=== PATIENT | female | born 1955 | race Hispanic/Latino ===

== ENCOUNTER → 2016-06-21 | Outpatient (CLI) | payer OTHER ==
--- NOTE | 2016-06-21 09:07 | Diagnostic Imaging Report ---
PROCEDURE: US abdomen complete. TECHNIQUE: Multiple real-time grayscale images were obtained over the abdomen in various projections. INDICATION: Chronic nausea. COMPARISON: None. DISCUSSION: Sonographic evaluation of the abdomen was performed. The liver appears normal in echotexture and size. No hepatic mass identified. The gallbladder appears normal without evidence of cholelithiasis, wall thickening, or pericholecystic fluid. No evidence of intra or extrahepatic biliary duct dilatation. The common bile duct is normal measuring 0.4 cm. The pancreas appears normal as visualized. The spleen appears normal in echotexture and size measuring 10.5 cm. The visualized aorta and IVC appear within normal limits. The bilateral kidneys appear normal in echotexture and size without evidence of hydronephrosis or renal mass. The right kidney measures 10.7 cm. The left kidney measures 9.8 cm. There is no ascites or abnormal bowel loops identified. No sonographic Dhillon sign was reported. IMPRESSION: 1. Unremarkable abdominal ultrasound. Dictated by: Dictated on workstation # [id number]
== END ==
LOC: RAD 07:53
PROVIDERS: ATTEND Physician Assistant Surgical
DX: R11.0 Nausea (principal)
CPT/HCPCS: 76700

== ENCOUNTER → 2016-07-02 | Outpatient (CLI) | payer OTHER ==
--- NOTE | 2016-07-02 10:14 | Diagnostic Imaging Report ---
INDICATION: Right upper quadrant pain, chronic nausea. COMPARISON: Ultrasound of 06/21/2016. TECHNIQUE: Scintigraphic images were obtained following the intravenous administration of 8.4 mCi of technetium 99m labeled Choletec. The ejection fraction was calculated following the administration of a fatty meal. A region of interest was drawn around the gallbladder and a time/activity curve was generated. DISCUSSION: The hepatic uptake and excretion are normal. There is normal appearance of activity within the gallbladder at 13 minutes. No retention of activity is seen within the common duct. Following the administration of a fatty meal, the gallbladder ejection fraction was calculated at 69%, normal. IMPRESSION: 1. Normal HIDA scan. 2. Normal gallbladder ejection fraction. 3. The patient did report pain in the right upper quadrant following consumption of Ensure. Dictated by: Dictated on workstation # [id number]
== END ==
LOC: RAD 07:51
PROVIDERS: ATTEND Physician Assistant Surgical
DX: R11.0 Nausea (principal); R10.11 Right upper quadrant pain
CPT/HCPCS: 78227; A9537; J2805

== ENCOUNTER → 2016-08-27 | Outpatient (CLI) | payer OTHER | LOC: RAD 07:56 | PROVIDERS: ATTEND Family Medicine | DX: Z12.31 Encounter for screening mammogram for malignant neoplasm of breast (principal) ==

== ENCOUNTER → 2016-09-18 | Outpatient (REF) | payer OTHER ==
[2016-09-18 12:00] LABS: BILIRUBIN,URINE Negative (Negative); CLARITY,URINE Clear; COLOR,URINE Yellow; GLUCOSE, URINE (UA) Negative (Negative); LEUKOCYTE ESTERASE ,URINE Negative (Negative); UROBILINOGEN,URINE 0.2 mg/dL (0.2-1.0)
== END ==
LOC: LAB 11:37
PROVIDERS: ATTEND Family Medicine
DX: R30.0 Dysuria (principal)
CPT/HCPCS: 81003

== ENCOUNTER → 2016-09-26 | Outpatient (CLI) | payer OTHER ==
[2016-09-26 07:59] LABS: BASOPHILS % (AUTO) 0 % (0-2); EOSINOPHILS # (AUTO) 0.2 10^3uL; EOSINOPHILS % (AUTO) 3 % (0-4); LYMPHOCYTES # (AUTO) 1.9 X10^3; MEAN CORPUSCULAR HEMOGLOBIN 28.9 PG (26.0-34.0); MEAN CORPUSCULAR HGB CONC 32.8 g/dL (31.0-37.0); MEAN CORPUSCULAR VOLUME 88 FL (80-100); MEAN PLATELET VOLUME 9.6 FL (6.0-9.5); MONOCYTES # (AUTO) 0.5 X10^3; MONOCYTES % (AUTO) 8 % (3-11); NEUTROPHILS # (AUTO) 3.5 X10^3; NEUTROPHILS % (AUTO) 58 % (51-67); PLATELET COUNT 269 10^3uL (150-450); WHITE BLOOD COUNT 6.08 10^3uL (4.0-11.0)
[2016-09-26 08:14] LABS: ANION GAP 16.1 MEQ/L (3-15); CALCULATED IONIZED CALCIUM 4.1 mg/dL (3.8-4.6)
--- NOTE | 2016-09-26 11:43 | Diagnostic Imaging Report ---
PROCEDURE: MRI lumbar spine. TECHNIQUE: Multiplanar, multisequence MRI of the lumbar spine was performed without contrast. INDICATION: Increasing lower back pain over the last 14 years. FINDINGS: The bone marrow does not show any significant abnormality. There is no evidence for discitis/osteomyelitis or neoplasm. The conus is normal. No intradural lesion is identified. L1-L2: Mild diffuse disc bulge. No significant abnormality. L2-L3 level: Dehydration change with mild loss of height. Mild diffuse disc bulge with mild central stenosis. No significant foraminal stenosis or nerve root encroachment. L3-L4 level: Disc dehydration change. Normal disc height. Minimal disc bulging. No significant abnormality. L4-L5 level: Mild diffusely bulging intervertebral disc with small focal central bulge. Mildly prominent ligamenta flava. Mild decrease in cross-sectional CSF surface area of thecal sac. No compression of the L4 nerve roots in the superior foramina. Mildly prominent ligamenta flava. L5-S1 level: Normal disc height and hydration state. Mild facet arthropathy is seen. The intervertebral disc shows no protrusion or significant bulge. The visualized portions of the abdominal aorta and kidneys are negative. IMPRESSION: 1. Mild degenerative changes, greatest at L4-L5. Otherwise unremarkable study. Dictated by: Dictated on workstation # [id number]
== END ==
LOC: RAD 07:34
PROVIDERS: ATTEND Family Medicine
DX: M54.16 Radiculopathy, lumbar region (principal); I10 Essential (primary) hypertension; E11.9 Type 2 diabetes mellitus without complications; E78.4 Other hyperlipidemia; E03.8 Other specified hypothyroidism; M85.89 Other specified disorders of bone density and structure, multiple sites
CPT/HCPCS: 36415; 72148; 80053; 80061; 82043; 82306; 84443; 85025

== ENCOUNTER 2016-10-17 13:45 | Outpatient (RCR) | payer OTHER ==
--- NOTE | 2016-09-26 11:11 | PT/OT/ST INITIAL EVALUATION ---
Department of Health and Human Services Form Approved Health Care Financing Administration OMB No. [id number] PLAN OF CARE/ASSESSMENT FOR OUTPATIENT REHABILITATION (Complete for Initial Claims Only) 1. PATIENT'S NAME Anna Sims 2. ACC # [id number] 3. HICN NA 4. PROVIDER NO. NA 5. TYPE: PT 6. PRIOR HOSPITALIZATION NA 7. PRIMARY DX Left lumbar radiculopathy ICD-10 M54.16 8. SECONDARY DX NA 9. ONSET DATE Several months ago 10. REFERRAL DATE 08/28/2016 11. SOC. DATE 09/24/2016 12. TIME OF EVAL 13:51 to 14:48 12. REFERRING PHYSICIAN RADHAMES Daniels with PCP being Duane Vela MD 13. CHARGES/UNITS Evaluation of moderate complexity 25756. 2 units of therapeutic exercise 50427 0 unit for iontophoresis 72358 14. G CODES NA 15. PRIOR LEVEL OF FUNCTION; PERTINENT HISTORY (Prior therapy results, reason for referral.) S: Prior to therapy, the patient consented to today's evaluation and treatment. The patient is a 61-year-old female referred by RADHAMES Daniels to address left lumbar radiculopathy. The patient notes having chronic low back pain with an acute onset several months ago with low back pain and left lower extremity radicular symptoms. The pain is described as sharp pain down her left lower extremity into her feet on the posterior aspect of her leg with numbness noted. 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 This job does require her to do a lot of bending, lifting, twisting and turning. The patient had no issues with sleeping through the night, and was able to complete activities of daily living without difficulty. Current level of function: The patient is still working her regular shift as a route vending machine servicer and she is unable to lie on her left side or sleep throughout the night now secondary to the increase in left lower extremity radicular pain. Therapy History: No prior therapy for this issue was noted recently. Pain level: Current pain level is 7/10, described as sharp pain down her left lower extremity. She also has right groin pain, as well as right knee pain. Aggravating factors: The pain is aggravated by bending or lifting. Relieving factors: It is relieved with the use of a heating pad. Diagnostic testing: The patient does have an MRI scheduled for . Past medical history: Arthritis, diabetes mellitus, hypertension, and thyroid issues. The patient does note having this issue greater than 10 years ago. Current medications: The patient is taking Meloxicam and ibuprofen 80 mg. No other medication information was reported. It should be noted, however, the patient did have an injection in her right knee that did cause it to swell up; however, the patient does not believe it was related to the medication specifically. Activity level: Not provided. Personal health rating: The patient reports it as poor. Patient's Goal: The patient's goal for physical therapy is to have less pain and improve her ability to sleep throughout the night. 16. INITIAL ASSESSMENT/SAFETY PRECAUTIONS/MEDICAL COMPLICATIONS (Level of function at start of care. Be specific, use objective measures, list problems.) O: APPEARANCE AND OBSERVATION: Observation of the patient's posture revealed decreased thoracic kyphosis. The left iliac crest is superior to the right. The patient has increased left knee extension in comparison to the right. Observation of the patient's movement with lumbar side bending reveals tightness with right lumbar side bending is limited secondary to pain on the left side. PALPATION: The patient has significant tenderness to palpation at the bilateral IT bands, bilateral hip flexors, as well as tenderness and tightness in the bilateral hip flexors, tenderness to palpation of the bilateral SI joints, and superior glutes. SPECIAL TESTS: The patient scores a 58% disability on the modified Oswestry pain questionnaire. , patellar tendon reflexes are 2+/4. Positive lumbar quadrant test for increased pain bilaterally greatest, and most limited on the left. Left posterior innominate noted on the long sitting test. Positive straight leg raise test on the left for increased nerve tension into the low back, negative on the right. Positive hip scour test on the right for increased hip and groin pain, negative on the left. Positive MOUNIKA and FADER on the right for increased pain at the groin area. Left was not assessed secondary to patient's pain level. RANGE OF MOTION/FLEXIBILITY: The patient's left hamstring length is limited by 30 degrees measured in supine. Right approximately 20 degrees. Lumbar flexion is limited by 25% and pain. Hip flexion limited to 90 degrees secondary to pain. STRENGTH: Hip flexion is 4-/5 on the right, 4-/5 on the left. Left hip abduction is 3+/5 and painful. Right not assessed secondary to patient's inability to tolerate left side lying. Knee flexion bilaterally 4-/5. Knee extension bilaterally 5/5. Ankle dorsiflexion bilaterally 5/5. TODAY'S TREATMENT: Today's treatment consisted of educating the patient on the today's evaluation and recommended treatment plan. The physical therapist initiated gentle stretching of the lower extremities secondary to significant tightness noted upon the evaluation. The physical therapist also applied an iontophoresis patch containing 1.8 mL of dexamethasone to the left lateral SI joint to decrease pain and inflammation. The patient was agreeable to use of this. The physical therapist also corrected the left posterior innominate with muscle energy technique and provided the patient with a home exercise program on how to self-correct this issue. 17. INITIAL POC: (Specify procedures, modalities, short and watermelon harvesting supervisor goals) A: The patient presents to physical therapy with chronic low back pain with recent exacerbation of left lower extremity radicular symptoms several months ago. The patient has significant lumbar spine limitations greatest in side-bending. Significant lower extremity muscle tightness in the hamstrings, IT bands and hip flexors. She does also have significant hip weakness and knee and hamstring weakness. PROGNOSIS: The patient does have a good prognosis in physical therapy with regular attendance and compliance with her home exercise program and pelvic rotation self correction. SHORT TERM GOALS X2 WEEKS: 1. The patient will report current pain level of less than or equal to 4/10. 2. The patient will report a 25% decrease in left lower extremity radicular symptoms. 3. The patient will report compliance with her home exercise program and muscle energy correction techniques as needed. 4. The patient will maintain neutral pelvic alignment over a 1-week time period to decrease pain caused by SI joint issues. AUDIOVISUAL PRODUCTION SPECIALIST GOALS X4 WEEKS: 1. The patient will have a maximum pain level of no greater than 3/10 in the low back and left lower extremity. 2. The patient will have a minimum of 4+/5 hip flexion and knee flexion strength bilaterally. 3. The patient will have an improvement of greater than or equal to 10% on the Modified Oswestry pain questionnaire. 4. The patient will demonstrate proper body mechanics with work-related tasks to decreased pain and strain on her low back and prevent further injury. 5. The patient will report being able to sleep greater than or equal to 4 hours at a time prior to being woken up secondary to her pain. P: Plan to see this patient 3 times a week x4 weeks in order address left lower extremity radicular symptoms and left SI joint pain. Treatment will include modalities as needed to decreased pain and inflammation. Manual therapy will be used to improve joint mobility, muscle flexibility and decreased pain and may include joint mobilizations, MFR, DTM, STM,and manual traction. Therapeutic exercise will be used to improve range of motion, muscle flexibility with progressive strengthening as the patient tolerates. Neuromuscular reeducation and functional training will also be provided to improve body mechanics to prevent further injury. The patient was provided with a home exercise program and this will be progressed as needed. Thank you for the referral of this patient. 18. FREQUENCY 3 times per week 19. DURATION 4 weeks 20. FUNCTIONAL LEVEL (End of claim period) 21. PHYSICIAN SIGNATURE ? ON FILE OR ENTER HERE: 22. DATE: I certify the need for these services furnished under this plan of care and if for partial hospitalization. 23. CERTIFICATION FROM THROUGH FORM [id number]
== END 2016-11-11 09:20 | disposition home or self-care (01) ==
LOC: PT 13:45
PROVIDERS: ATTEND Physician Assistant Surgical
DX: M54.16 Radiculopathy, lumbar region (principal)